=== PATIENT | male | born 1980 | race Caucasian/White ===

== ENCOUNTER 2018-07-28 15:57 | Emergency (ER) | payer BC ==
--- NOTE | 2018-07-28 19:49 | ER Document Report ---
ED Medical Screen (RME) - General Chief Complaint: Leg Pain Stated Complaint: LEG PAIN Time Seen by Provider: 07/28/18 19:40 Notes: Patient is a 38 male that presents to the emergency department for chief complaint of right leg pain and swelling for 5 days. ROS: Other than noted above, the 12 point review of systems was reviewed with the patient and were negative, all pertinent findings are included in the HPI. PHYSICAL EXAMINATION: Vital signs reviewed. GENERAL: Well-appearing, well-nourished and in no acute distress. HEAD: Atraumatic, normocephalic. EYES: Pupils equal round extraocular movements intact, conjunctiva are normal. ENT: Nares patent NECK: Normal range of motion CV: Heart regular rate and rhythm LUNGS: No respiratory distress Musculoskeletal: Normal range of motion, trace right lower extremity pitting edema NEUROLOGICAL: Normal speech PSYCH: Normal mood, normal affect. MDM: Patient seen and examined for rapid initial assessment. Vital signs reviewed. A comprehensive ED assessment and evaluation of the patient, analysis of test results and completion of the medical decision making process will be conducted by additional ED providers. *Note is created using voice recognition software and may contain spelling, syntax or grammatical errors. TRAVEL OUTSIDE OF THE [place] IN LAST 30 DAYS: No - Related Data Allergies/Adverse Reactions: No Known Allergies Allergy (Unverified 07/28/18 16:06) Past Medical History - Social History Frequency of alcohol use: None Drug Abuse: None Renal/ Medical History: Denies: Hx Peritoneal Dialysis Physical Exam - Vital signs Vitals: Temp Pulse Resp BP Pulse Ox 97.9 F 61 20 125/81 100 07/28/18 16:36 07/28/18 16:36 07/28/18 16:36 07/28/18 16:36 07/28/18 16:36 Course - Vital Signs Vital signs: Temp Pulse Resp BP Pulse Ox 97.9 F 61 20 125/81 100 07/28/18 16:36 07/28/18 16:36 07/28/18 16:36 07/28/18 16:36 07/28/18 16:36
[2018-07-28 20:26] LABS: ABSOLUTE BASOPHILS # (AUTO) 0.1 10^3/uL (0.0-0.2); ABSOLUTE EOSINOPHILS # (AUTO) 0.3 10^3/uL (0.0-0.6); ABSOLUTE LYMPHOCYTES (AUTO) 2.5 10^3/uL (0.5-4.7); ABSOLUTE MONOCYTES (AUTO) 0.5 10^3/uL (0.1-1.4); ABSOLUTE NEUT (AUTO) 3.7 10^3/uL (1.7-8.2); BASOPHILS % (AUTO) 1.6 % (0-2); EOSINOPHILS % (AUTO) 4.4 % (0-6); HEMATOCRIT 48.1 % (37.9-51.0); HEMOGLOBIN 16.5 g/dL (13.5-17.0); MEAN CORPUSCULAR HEMOGLOBIN 29.8 pg (27.0-33.4); MEAN CORPUSCULAR HGB CONC 34.3 g/dL (32.0-36.0); MEAN CORPUSCULAR VOLUME 87 fl (80-97); MONOCYTES % (AUTO) 7.4 % (3-13); PLATELET COUNT 189 10^3/uL (150-450); RED BLOOD COUNT 5.53 10^6/uL (4.35-5.55); RED CELL DISTRIBUTION WIDTH 13.8 % (11.5-14.0); SEGMENTED NEUTROPHILS % (AUTO) 51.6 % (42-78); TOTAL CELLS COUNTED % (AUTO) 100 %; WHITE BLOOD COUNT 7.2 10^3/uL (4.0-10.5)
[2018-07-28 20:41] LABS: ANION GAP 11 (5-19); BLOOD UREA NITROGEN 12 mg/dL (7-20); CALCIUM 8.9 mg/dL (8.4-10.2); CARBON DIOXIDE 30 mmol/L (22-30); CHLORIDE 102 mmol/L (98-107); GLUCOSE 97 mg/dL (75-110); POTASSIUM 3.9 mmol/L (3.6-5.0)
[2018-07-28 20:47] LABS: INTERNATIONAL RATION (INR) 0.97; PROTHROMBIN TIME 13.4 SEC (11.4-15.4)
[2018-07-28 20:48] LABS: PARTIAL THROMBOPLASTIN TIME 29.7 SEC (23.5-35.8)
[2018-07-28] MEDS ORDERED: CEPHALEXIN 500 MG CAPSULE PO ONE (22:56)
[2018-07-28] MEDS ORDERED: IBUPROFEN 800 MG TABLET PO ONE (22:56)
[2018-07-28 23:46] VITALS: BP 126/56
--- NOTE | 2018-07-29 03:22 | RADIOLOGY REPORT (SQ) ---
EXAM DESCRIPTION: US EXTREMITY VEINS UNILATERAL COMPLETED DATE/TME: 07/28/2018 19:47 CLINICAL HISTORY: right le swelling COMPARISON: None. TECHNIQUE: Grayscale, color Doppler, and spectral Doppler imaging of the right lower extremity venous system. FINDINGS: Normal compressibility and flow identified in the right common femoral, superficial femoral, popliteal, and visualized calf veins. No echogenic thrombus identified. No soft tissue abnormalities. Respiratory phasicity in the common femoral veins. Comparison images of the left common femoral vein were obtained demonstrating normal compressibility and flow. IMPRESSION: No evidence of right lower extremity DVT.
--- NOTE | 2018-07-29 06:13 | ER Document Report ---
Entered by MATTHEW KING SCRIBE 07/28/18 [id number] Acting as scribe for:SENAIT BLACKMAN MD ED General - General Chief Complaint: Leg Pain Stated Complaint: LEG PAIN Time Seen by Provider: 07/28/18 19:40 Primary Care Provider: [facility] [Provider Group] - Follow up as needed Mode of Arrival: Ambulatory Information source: Patient Notes: Patient is a 38-year-old male with no significant medical history presents to the emergency department complaining of right flank pain onset approximately 1 week ago. 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 He states 5 days ago, he noticed some swelling and pain to his right leg that is worsening. He also mentions recently buying a new pair of boots that are tight around his feet. He states his leg does feel somewhat better after not having to work today. TRAVEL OUTSIDE OF THE [place] IN LAST 30 DAYS: No - Related Data Allergies/Adverse Reactions: No Known Allergies Allergy (Unverified 07/28/18 16:06) Past Medical History - General Information source: Patient - Social History Smoking Status: Current Every Day Smoker Cigarette use (# per day): Yes - 1 PPD Chew tobacco use (# tins/day): No Frequency of alcohol use: None Drug Abuse: None Family History: Reviewed & Not Pertinent Patient has suicidal ideation: No Patient has homicidal ideation: No Review of Systems - Review of Systems Constitutional: No symptoms reported EENT: No symptoms reported Cardiovascular: No symptoms reported Respiratory: No symptoms reported Gastrointestinal: No symptoms reported Genitourinary: No symptoms reported Male Genitourinary: No symptoms reported Musculoskeletal: See HPI, Leg swelling Skin: No symptoms reported Hematologic/Lymphatic: No symptoms reported Neurological/Psychological: No symptoms reported Physical Exam - Vital signs Vitals: Temp Pulse Resp BP Pulse Ox 97.9 F 61 20 125/81 100 07/28/18 16:36 07/28/18 16:36 07/28/18 16:36 07/28/18 16:36 07/28/18 16:36 - Notes Notes: GENERAL: Alert, interacts well. No acute distress. HEAD: Normocephalic, atraumatic. EYES: Pupils equal, round, and reactive to light. Extraocular movements intact. ENT: Oral mucosa moist, tongue midline. NECK: Full range of motion. Supple. Trachea midline. LUNGS: Clear to auscultation bilaterally, no wheezes, rales, or rhonchi. No respiratory distress. HEART: Regular rate and rhythm. No murmurs, gallops, or rubs. ABDOMEN: Soft, non-tender. Non-distended. Bowel sounds present in all 4 quadrants. EXTREMITIES: Moves all 4 extremities spontaneously. Tender palpation to the right anterior tibial surface with pitting edema. There is a small amount of erythema across the right anterior tibial surface, more so distally. There are no breaks in the skin of the RLE, no calf swelling, no anterior tibialis muscle swelling. NEUROLOGICAL: Alert and oriented x3. Normal speech. PSYCH: Normal affect, normal mood. SKIN: Warm, dry, normal turgor. No rashes or lesions noted. Course - Vital Signs Vital signs: Temp Pulse Resp BP Pulse Ox 97.9 F 72 18 126/56 H 96 07/28/18 16:36 07/28/18 23:45 07/28/18 23:45 07/28/18 23:45 07/28/18 23:45 - Laboratory Result Diagrams: 07/28/18 20:03 07/28/18 20:03 Discharge - Discharge Clinical Impression: Pain and swelling of right lower leg Disposition: HOME, SELF-CARE I personally performed the services described in the documentation, reviewed and edited the documentation which was dictated to the scribe in my presence, and it accurately records my words and actions.
== END 2018-07-28 23:45 | disposition home or self-care (01) ==
LOC: EDSEX → ER 15:57
DX: M79.661 Pain in right lower leg (principal); M79.89 Other specified soft tissue disorders; L53.9 Erythematous condition, unspecified; F17.210 Nicotine dependence, cigarettes, uncomplicated
CPT/HCPCS: 36415; 80048; 85025; 85610; 85730; 93971; 99284

== ENCOUNTER 2018-11-10 16:44 | Emergency (ER) | payer BC ==
[2018-11-10] MEDS ORDERED: POLYMYXIN B SULFATE/TMP OPH SOLN (10 ML/ER DISP) OU ONE (17:50)
--- NOTE | 2018-11-10 17:55 | ER Document Report ---
HPI - HPI Patient complains to provider of: pink eye Time Seen by Provider: 11/10/18 17:43 Pain Level: 0 Context: 38-year-old healthy male presents emergency department with chief complaint of pinkeye for 2 days. He states he knows he got at work because everybody at work is had it and its "run its course through everybody". Patient states his eyes are itching and they are matted shut in the morning with purulent discharge and sticky. He has been placing hot rags over his eyes in the morning and it is successfully to clear some of the discharge. He denies fevers, chills, neck stiffness, complains of bilateral itching eyes. He said it is started in the left eye and then moved into the right. He denies any vision changes, photophobia, scratching sensation in his eyes, or any other symptoms. He does have seasonal allergies that hit him hard especially grasses. - REPRODUCTIVE Reproductive: DENIES: : Past Medical History - Social History Smoking Status: Current Every Day Smoker Family History: Reviewed & Not Pertinent Renal/ Medical History: Denies: Hx Peritoneal Dialysis Vertical Provider Document - CONSTITUTIONAL Notes: PHYSICAL EXAMINATION: Reviewed vital signs and charting by RN GENERAL: Alert, interacts well. No acute distress. HEAD: Normocephalic, atraumatic. EYES: Pupils equal, round, and reactive to light. Extraocular movements intact. Scleral injection, no evidence of purulent discharge, no photophobia visual acuity: OS 20/20, OD 20/20, OU 20/20 ENT: Oral mucosa moist, tongue midline. NECK: Full range of motion. Supple. Trachea midline. PSYCH: Normal affect, normal mood. SKIN: Warm, dry, normal turgor. No rashes or lesions noted. - INFECTION CONTROL TRAVEL OUTSIDE OF THE [place] IN LAST 30 DAYS: No Course - Re-evaluation Re-evalutation: 11/10/18 17:53 Presentation most consistent with a viral conjunctivitis but patient is adamant that he receives "the drops". I explained to patient this is most likely a viral etiology but he states that is what he wants. I will give him a small bottle of Polytrim and instructed him on installation. Patient is tachycardic and I did discuss this with him and he sounded surprised. He is a smoker. Heart rate was 108 but he is well-appearing and has no other symptoms so I am comfortable discharging him pending discharge vitals. - Vital Signs Vital signs: Temp Pulse Resp BP Pulse Ox 98.1 F 107 H 16 140/79 H 96 11/10/18 16:48 11/10/18 16:48 11/10/18 16:48 11/10/18 16:48 11/10/18 16:48 Discharge - Discharge Clinical Impression: Conjunctivitis Qualifiers: Conjunctivitis type: acute Acute conjunctivitis type: unspecified Laterality: bilateral Qualified Code(s): H10.33 - Unspecified acute conjunctivitis, bilateral Condition: Good Disposition: HOME, SELF-CARE Instructions: Eyedrop Use ([facility]) Additional Instructions: Your eye redness is likely due to a viral infection. You have been sent home with a prescription for eyedrops which you can start if your symptoms worsen or fail to improve in that time. Please return immediately if you begin to have worsening discomfort in the eyes, vision loss, swelling in the eyes, fever, or you have any other symptoms that are worrisome to you.
[2018-11-10 18:49] VITALS: BP 120/81
== END 2018-11-10 18:53 | disposition home or self-care (01) ==
LOC: ER 16:44
DX: H10.33 Unspecified acute conjunctivitis, bilateral (principal); F17.200 Nicotine dependence, unspecified, uncomplicated; R00.0 Tachycardia, unspecified
CPT/HCPCS: 99282; J3490

== ENCOUNTER 2018-11-13 14:42 | Emergency (ER) | payer BC ==
[2018-11-13 14:47] VITALS: BP 132/85
--- NOTE | 2018-11-13 15:28 | ER Document Report ---
HPI - HPI Time Seen by Provider: 11/13/18 15:13 Pain Level: 1 Notes: Patient is a 38-year-old male with no significant past medical history who presents for evaluation of left eye redness over the past 5 days. Patient states that he does continue to have some matting and discharge in the mornings only. He has been using his Polytrim drops as directed after his visit 3 days ago. Patient states that when he was here a few days ago his eyes were both red and draining bilaterally. Left eye has since improved. He continues to have some redness to his left eye as noted above. Overall the symptoms are not as bad as they were, but patient states that his work would not allow him to go back until reevaluation. Patient states that he would like to stay off of work another 1 to 2 days so he can see an eye doctor as well. He is otherwise eating and drinking without difficulty. No recent illness. No foreign body sensation. Denies any headache, fever, head injury, neck pain, changes in vision/speech/mentation/hearing, URI, sore throat, chest pain, palpitations, syncope, cough, shortness of breath, wheeze, dyspnea, abdominal pain, nausea/vomiting/diarrhea, urinary retention, dysuria, hematuria, or rash. Patient does not wear contact lenses. - ROS Systems Reviewed and Negative: Yes All other systems reviewed and negative - CONSTITUTIONAL Constitutional: DENIES: Fever, Chills - EENT EENT: REPORTS: Eye problems - REPRODUCTIVE Reproductive: DENIES: : Past Medical History - Social History Smoking Status: Unknown if Ever Smoked Family History: Reviewed & Not Pertinent Patient has suicidal ideation: No Patient has homicidal ideation: No Renal/ Medical History: Denies: Hx Peritoneal Dialysis Vertical Provider Document - CONSTITUTIONAL Agree With Documented VS: Yes Notes: PHYSICAL EXAMINATION: GENERAL: Well-appearing, well-nourished and in no acute distress. A&Ox4 HEAD: Atraumatic, normocephalic. EYES: Pupils equal round and reactive to light, extraocular movements intact, sclera anicteric, conjunctiva left shows mild episcleritis b/l w/o discharge or matting. Non-tender to palp of the globe and eye itself. No surrounding erythema or swelling noted. Wood's lamp/flourescein: No abrasion, laceration, ulceration, or epi sign noted. No obvious foreign body appreciated. ENT: EAC clear b/l. TM's intact b/l without erythema, fluid, or perforation. Nares patent and without discharge. oropharynx clear without exudates. No tonsilar hypertrophy or erythema. Moist mucous membranes. No sinus tenderness. Uvula midline. No palatine shift. No airway compromise. No drooling or hoarseness. NECK: Normal range of motion, supple without lymphadenopathy. No rigidity/meningismus. LUNGS: Breath sounds clear to auscultation bilaterally and equal. No wheezes rales or rhonchi. HEART: Regular rate and rhythm without murmurs, rubs, gallops. Musculoskeletal: Ext b/l: FROM to passive/active. Strength 5+/5. Extremities: No cyanosis, clubbing, or edema b/l. Peripheral pulses 2+. Capillary refill less than 3 seconds. NEUROLOGICAL: Cranial nerves grossly intact. Normal speech, normal gait. Normal sensory, motor exams PSYCH: Normal mood, normal affect. SKIN: Warm, Dry, normal turgor, no rashes or lesions noted. - INFECTION CONTROL TRAVEL OUTSIDE OF THE [place] IN LAST 30 DAYS: No Course - Re-evaluation Re-evalutation: 11/13/18 15:26 Patient is an afebrile, well-hydrated, 38-year-old male who presents to the emergency department with episcleritis vs mild conjunctivitis to the left eye. Vitals are acceptable without significant tachycardia, tachypnea, or hypoxia. PE is otherwise unremarkable. Patient is nontoxic-appearing and is able to tolerate p.o. without difficulty. No labs or imaging warranted. Low suspicion for any retained corneal or lid foreign body, deep space infection including orbital cellulitis/abscess, acute glaucoma, penetrating globe injury, retinal detachment, meningitis, sepsis, fracture, compartment syndrome. Patient has only been on Polytrim for the past 3 days, but has noted improvement in the right eye and mildly to the left. Conservative measures otherwise for symptoms with proper handwashing. Recheck with your PCM in 3-5 days. Consider follow-up with ophthalmology. Return to the ED with any worsening/concerning symptoms otherwise as reviewed in discharge. Patient is in agreement. - Vital Signs Vital signs: Temp Pulse Resp BP Pulse Ox 97.9 F 93 18 132/85 H 97 11/13/18 14:46 11/13/18 14:46 11/13/18 14:46 11/13/18 14:46 11/13/18 14:46 Discharge - Discharge Clinical Impression: Episcleritis of left eye Left conjunctivitis Qualifiers: Conjunctivitis type: acute Acute conjunctivitis type: unspecified Qualified C ode(s): H10.32 - Unspecified acute conjunctivitis, left eye Condition: Stable Disposition: HOME, SELF-CARE Additional Instructions: Keep eyes clean Avoid scratching/touching eyes Wash hands regularly Use eye drops as directed Maintain adequate fluid intake tylenol/ibuprofen as needed over the counter cold medication as needed for symptoms F/u: with your PCM in 3-5 days for a recheck Schedule appointment with ophthalmology for further evaluation and management Return to the ED with any worsening symptoms and/or development of fever, headache, changes in vision, eye pain, worsening eye redness, redness around the eyes, purulent discharge, sore throat, facial swelling, neck pain/stiffness, chest pain, palpitations, syncope, shortness of breath, trouble breathing, abdominal pain, n/v/d, blood in stool/urine, dysuria, or other worsening symptoms that are concerning to you. Forms: Elevated Blood Pressure, Return to Work Referrals: JOY PARK DO [ACTIVE STAFF] - Follow up tomorrow
== END 2018-11-13 15:30 | disposition home or self-care (01) ==
LOC: ER 14:42
DX: H10.32 Unspecified acute conjunctivitis, left eye (principal); H15.102 Unspecified episcleritis, left eye
CPT/HCPCS: 99283

== ENCOUNTER 2019-11-02 22:53 | Emergency (ER) | payer SELFPAY ==
[2019-11-02 23:29] VITALS: BP 143/90
[2019-11-03] MEDS ORDERED: CEPHALEXIN 500 MG CAPSULE PO ONE (01:51)
[2019-11-03] MEDS ORDERED: CIPROFLOXACIN HCL 500 MG TABLET PO ONE (01:54)
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
== END 2019-11-03 02:12 | disposition home or self-care (01) ==
LOC: ER 22:53
DX: S81.801A Unspecified open wound, right lower leg, initial encounter (principal); X58.XXXA Exposure to other specified factors, initial encounter; F17.200 Nicotine dependence, unspecified, uncomplicated
CPT/HCPCS: 99282